=== PATIENT | male | born 1950 | race Caucasian/White ===

== ENCOUNTER 2018-06-10 07:09 | Outpatient (CLI) | payer BC, MEDICARE ==
--- NOTE | 2018-06-10 10:51 | CT ---
CT CHEST WITHOUT CONTRAST SCREENING PROTOCOL: HISTORY: Screening. COMPARISON: CT chest from 02/09/2017. FINDINGS: Lung screen specific (lung-RADS): Left upper lobe pulmonary nodule continues to measure 11 to 12 mm in size, unchanged. There is perip heral spiculation. The craniocaudal length of this nodule is approximately 15 mm, relatively unchang ed from 2016. The 6 to 7 mm nodule in the left upper lobe, axial image 96, is also unchanged. Moderate background emphysema. There is some round atelectasis in the right middle lobe. Chronic bronchial wall thickening. Potentially significant incidentals (lung-RADS category S): None. Pulmonary incidentals: Chronic respiratory bronchiolitis. No pleural effusion. No pericardial effu sheldon. Mild atherosclerotic plaque at the aorta. No displaced rib fracture. No suspicious osteolytic or osteoblastic lesions. IMPRESSION: 1. Lung-RADS category 2-Benign appearance and behavior. Continued screening in one year is recommen ded. 2. Lung-RADS category S-Negative. No new or unknown potentially significant incidental findings req uiring urgent additional evaluation. POS: [facility]
--- NOTE | 2018-06-10 11:20 | ULT ---
LIMITED ULTRASOUND OF THE ABDOMINAL AORTA. HISTORY: Abdominal aortic aneurysm. Abdominal bruit. TECHNIQUE: Multiplanar, henry scale, and color Doppler images were obtained in a limited ultrasound of the abdomi nal aorta. Spectral analysis of the Doppler waveforms of the aorta and common iliac arteries was per formed. FINDINGS: The aorta is normal in caliber without evidence of enlargement. The aorta measures 2.6 cm in greates t dimension proximally. There is no evidence of enlargement of the common iliac arteries. Normal velocities are seen within the aorta and common iliac arteries. IMPRESSION: No evidence of abdominal aortic aneurysm. POS: C
== END 2018-06-10 07:10 | disposition home or self-care (01) ==
LOC: SCSULT 07:09 → CT 07:10
PROVIDERS: ATTEND Family Medicine
DX: Z13.6 Encounter for screening for cardiovascular disorders (principal); Z12.2 Encounter for screening for malignant neoplasm of respiratory organs; Z87.891 Personal history of nicotine dependence
CPT/HCPCS: 76775; G0297

== ENCOUNTER 2019-02-17 15:07 | Outpatient (CLI) | payer BC, MEDICARE ==
--- NOTE | 2019-02-17 15:32 | RAD ---
XR Ankle Rt 3 View STANDARD HISTORY: Injury, right ankle pain FINDINGS: The ankle mortise is maintained. There is a minimally displaced oblique fracture involving the distal fibula.
--- NOTE | 2019-02-17 15:35 | RAD ---
XR Foot Rt 3 View STANDARD HISTORY: Injury, right foot pain FINDINGS: No fracture or dislocation is identified in the right foot. Incidental note is made of an oblique fra cture in the distal fibula..
== END 2019-02-17 15:08 | disposition home or self-care (01) ==
LOC: SCSRAD 15:07
PROVIDERS: ATTEND Family Medicine
DX: S99.921A Unspecified injury of right foot, initial encounter (principal); S99.911A Unspecified injury of right ankle, initial encounter

== ENCOUNTER 2019-02-17 16:32 | Emergency (ER) | payer BC, MEDICARE ==
--- NOTE | 2019-02-17 17:12 | RAD ---
RIGHT LEG 2 VIEWS: HISTORY: Injury, right ankle pain FINDINGS: The right tibia appears intact. There is a minimally displaced oblique fracture of the distal fibula.
== END 2019-02-17 17:42 | disposition home or self-care (01) ==
LOC: SCSER 16:32
DX: S82.431A Displaced oblique fracture of shaft of right fibula, initial encounter for closed fracture (principal); S82.301A Unspecified fracture of lower end of right tibia, initial encounter for closed fracture; I69.954 Hemiplegia and hemiparesis following unspecified cerebrovascular disease affecting left non-dominant side; J43.9 Emphysema, unspecified; F03.90 Unspecified dementia, unspecified severity, without behavioral disturbance, psychotic disturbance, mood disturbance, and anxiety; Z87.891 Personal history of nicotine dependence; W01.0XXA Fall on same level from slipping, tripping and stumbling without subsequent striking against object, initial encounter

== ENCOUNTER 2019-06-28 13:17 | Outpatient (CLI) | payer BC, MEDICARE ==
--- NOTE | 2019-06-28 14:53 | CT ---
CT PULMONARY LUNG SCAN: 06/28/19 IDICATION: History of tobacco use; former smoker for 40 years quit five years ago. COMPARISON: CT pulmonary lung scan dated 06/10/18, CT of the thorax dated 02/10/16 and 01/22/16. FINDINGS: The spiculated 1.3 cm pulmonary nodule is stable. The small 6 mm pulmonary nodule within the left upp er lobe on imaging 100 of series 2 is stable. There is moderate to prominent emphysema. There is pers istent areas of subsegmental volume loss in the right lower lobe and right middle lobe. No new pulmon renate nodule is demonstrated. Coronary artery thoracic aortic calcifications. There is a small hiatal h ernia. The visualized upper abdomen reveals no definite acute abnormality. No definite acute osseous abnormality is evident. IMPRESSION: 1. Lung RADS category 2 - benign. Continued screening in one year is recommended. 2. Lung RADS category S - coronary and thoracic aortic calcifications. Small hiatal hernia. Mode rate to prominent emphysema. POS: [facility]
== END 2019-06-28 13:18 | disposition home or self-care (01) ==
LOC: CT 13:17
PROVIDERS: ATTEND Family Medicine
DX: Z12.2 Encounter for screening for malignant neoplasm of respiratory organs (principal); Z87.891 Personal history of nicotine dependence; K44.9 Diaphragmatic hernia without obstruction or gangrene; J43.9 Emphysema, unspecified
CPT/HCPCS: G0297

== ENCOUNTER 2020-07-29 14:11 | Outpatient (CLI) | payer BC | END 2020-07-29 14:12 | disposition home or self-care (01) | LOC: BICCT 14:11 | PROVIDERS: ATTEND Family Medicine | DX: Z12.2 Encounter for screening for malignant neoplasm of respiratory organs (principal); Z87.891 Personal history of nicotine dependence; I25.10 Atherosclerotic heart disease of native coronary artery without angina pectoris; J43.2 Centrilobular emphysema | CPT/HCPCS: 71271 ==

== ENCOUNTER 2022-11-18 08:15 | Outpatient (CLI) | payer BC, MEDICARE | END 2022-11-18 08:16 | disposition home or self-care (01) | LOC: LABBT 08:15 | PROVIDERS: ATTEND Thoracic Surgery (Cardiothoracic Vascular Surgery) | DX: Z01.810 Encounter for preprocedural cardiovascular examination (principal); C34.12 Malignant neoplasm of upper lobe, left bronchus or lung | CPT/HCPCS: 93005; 93010 ==

== ENCOUNTER 2022-11-18 08:30 | Inpatient (IN) | payer BC, MEDICARE ==
[2022-11-18 09:30] LABS: Hematocrit 47.4 % (38.8-50.0); Mean Corpuscular HGB CONC 31.6 g/dL (32.0-36.0); Mean Corpuscular Volume 91.7 fl (81.2-95.1); Mean Platelet Volume 10.2 fl (7.4-10.4); Platelet Count 366 10x3/uL (150-450); RBC Distribution Width 14.8 % (11.5-14.5); Red Blood Cell (RBC) Count 5.17 10x6/uL (4.32-5.72); White Blood Cell (WBC) Count 6.7 10x3/uL (3.5-10.5)
[2022-11-18 10:01] LABS: Anion Gap 18 mmol/L (10-20); BUN (Urea Nitrogen) 15 mg/dL (8.4-25.7); Calc. Creatinine Clearance 0 mL/min (70-130); Calcium 9.1 mg/dL (7.8-10.44); Carbon Dioxide 21 mmol/L (23-31); Chloride 107 mmol/L (98-107); Estimated GFR 93; Glucose 107 mg/dL (80-115); Sodium 142 mmol/L (136-145)
[2022-11-19] MEDS ORDERED: Bupivacaine HCl 0.5%/Epinephrine 1:200,000/PF 30 ml Vial ONE (06:22)
[2022-11-19] MEDS ORDERED: SUGAMMADEX SODIUM 200 MG/2 ML VIAL ONE (07:01)
[2022-11-19] MEDS ORDERED: HYDROmorphone 0.5 MG/0.5 ML SYRINGE ONE (07:01)
[2022-11-19] MEDS ORDERED: Midazolam HCl 2 mg/2 ml Vial ONE (07:01)
[2022-11-19] MEDS ORDERED: Fentanyl 250 MCG/5 ML VIAL ONE (07:01)
[2022-11-19] MEDS ORDERED: Rocuronium Bromide 50 MG/5 ML VIAL ONE (07:01)
[2022-11-19] MEDS ORDERED: Lidocaine 1.5% w/Epi 1:200K 30 ML VIAL (Epid Use) ONE (08:14)
[2022-11-19] MEDS ORDERED: Ondansetron PF 4 MG/2 ML Vial ONE (08:14)
[2022-11-19] MEDS ORDERED: Dexamethasone 20 MG/5 ML VIAL ONE (08:14)
[2022-11-19] MEDS ORDERED: PROPOFOL 200 MG/20 ML VIAL ONE (08:14)
[2022-11-19] MEDS ORDERED: Lidocaine 1% PF 5 ML VIAL ONE ×2 (08:14→08:56)
[2022-11-19] MEDS ORDERED: Rocuronium Bromide 10 MG/ML (10ML VIAL) ONE (08:14)
[2022-11-19] MEDS ORDERED: Bupivacaine 0.25% 10 ML VIAL EPIDURAL PRN (08:45)
[2022-11-19] MEDS ORDERED: Promethazine HCl 25 MG/ML VIAL IM PRN (08:45)
[2022-11-19] MEDS ORDERED: Zolpidem Tartrate 5 MG TAB PO PRN (08:45)
[2022-11-19] MEDS ORDERED: Promethazine HCl 25 MG SUPP PR PRN (08:45)
[2022-11-19] MEDS ORDERED: Naloxone HCl 0.4 mg/ml Vial IV PRN (08:45)
[2022-11-19] MEDS ORDERED: traMADol HCl 50 MG TAB PO PRN ×2 (08:45)
[2022-11-19] MEDS ORDERED: HYDROcodone/Acetaminophen 5/325 mg Tablet PO PRN ×2 (08:45)
[2022-11-19] MEDS ORDERED: Ondansetron PF 4 MG/2 ML Vial IVP PRN ×2 (08:45→11:13)
[2022-11-19] MEDS ORDERED: diphenhydrAMINE 25 MG CAP PO PRN (08:45)
[2022-11-19] MEDS ORDERED: Moisturizing Cream (Eucerin) 113 GM JAR TOP PRN (08:45)
[2022-11-19] MEDS ORDERED: diphenhydrAMINE 50 MG/ML VIAL IM PRN (08:45)
[2022-11-19] MEDS ORDERED: Naloxone HCl 0.4 mg/ml Vial IVP PRN (08:45)
[2022-11-19] MEDS ORDERED: niCARdipine 25 MG in Sodium Chloride 0.9% 250 ML 250 ML IVPB PRN (11:13)
[2022-11-19] MEDS ORDERED: Phenylephrine 40 MG in Sodium Chloride 0.9% 250 ML 250 ML IVPB PRN (11:13)
[2022-11-19] MEDS: Ketorolac Tromethamine 30 MG/ML VIAL IVP SCH ×3 (13:41→23:39)
[2022-11-19] MEDS: Lactated Ringer's 1,000 ML IV SCH ×2 (13:42→23:40)
[2022-11-19] MEDS: CEFAZOLIN 2 GM in Sodium Chloride 0.9% 100 ML IVPB SCH ×2 (16:17→23:39)
[2022-11-19] MEDS: levETIRAcetam 500 MG TAB PO SCH (21:04)
[2022-11-19] MEDS: Citalopram 20 MG TAB PO SCH (21:04)
[2022-11-19] MEDS: Atorvastatin Calcium 40 MG TAB PO SCH (21:04)
[2022-11-20] MEDS: Fentanyl/Bupivacaine 100 ML EPIDURAL SCH ×2 (03:45→20:32)
[2022-11-20] MEDS: Ipratropium/Albuterol 3 ML NEB NEB PRN ×2 (04:12→11:40)
[2022-11-20] MEDS: Ketorolac Tromethamine 30 MG/ML VIAL IVP SCH ×4 (05:08→23:48)
[2022-11-20 05:27] LABS: %Basophils 0.1 % (0.0-1.0); %Lymphocytes 18.7 % (21.0-51.0); %Monocytes 10.9 % (0.0-10.0); %Neutrophils 69.8 % (42.0-75.0); Hematocrit 40.3 % (42.0-52.0); Hemoglobin 13.1 g/dL (14.0-18.0); Mean Corpuscular HGB CONC 32.5 g/dL (32.0-36.0); Mean Corpuscular Hemoglobin 29.5 pg (27.0-31.0); Mean Corpuscular Volume 90.8 fl (78.0-98.0); Mean Platelet Volume 10.3 fL (7.4-10.4); Platelet Count 310 10x3/uL (130-400); RBC Distribution Width 14.9 % (11.5-14.5); Red Blood Cell (RBC) Count 4.44 mill/uL (4.70-6.10); White Blood Cell (WBC) Count 18.6 10x3/uL (4.8-10.8)
[2022-11-20 05:52] LABS: Anion Gap 13 mmol/L (10-20); BUN (Urea Nitrogen) 19 mg/dL (8.4-25.7); Calc. Creatinine Clearance 72 mL/min (70-130); Calcium 8.3 mg/dL (7.8-10.44); Carbon Dioxide 19 mmol/L (23-31); Chloride 109 mmol/L (98-107); Estimated GFR 93; Glucose 133 mg/dL (80-115); Potassium 4.2 mmol/L (3.5-5.1); Sodium 137 mmol/L (136-145)
[2022-11-20] MEDS: Aspirin 81 mg Enteric Coated Tablet PO SCH (07:37)
[2022-11-20] MEDS: Polyethylene Glycol 3350 17 GM Packet PO SCH (07:37)
[2022-11-20] MEDS: CEFAZOLIN 2 GM in Sodium Chloride 0.9% 100 ML IVPB SCH (07:37)
[2022-11-20] MEDS: levETIRAcetam 500 MG TAB PO SCH ×2 (07:37→21:36)
[2022-11-20] MEDS: Lactated Ringer's 1,000 ML IV SCH ×2 (07:38→23:49)
[2022-11-20] MEDS: Citalopram 20 MG TAB PO SCH (21:36)
[2022-11-20] MEDS: Atorvastatin Calcium 40 MG TAB PO SCH (21:36)
[2022-11-21] MEDS: Ipratropium/Albuterol 3 ML NEB NEB PRN (00:54)
[2022-11-21 04:27] LABS: Anion Gap 13 mmol/L (10-20); BUN (Urea Nitrogen) 25 mg/dL (8.4-25.7); Calc. Creatinine Clearance 83 mL/min (70-130); Calcium 8.3 mg/dL (7.8-10.44); Carbon Dioxide 22 mmol/L (23-31); Chloride 106 mmol/L (98-107); Estimated GFR 93; Glucose 108 mg/dL (80-115); Potassium 3.8 mmol/L (3.5-5.1); Sodium 137 mmol/L (136-145)
[2022-11-21] MEDS: Ketorolac Tromethamine 30 MG/ML VIAL IVP SCH (05:24)
[2022-11-21] MEDS: diphenhydrAMINE 50 MG/ML VIAL IVP PRN (05:40)
[2022-11-21] MEDS: levETIRAcetam 500 MG TAB PO SCH ×2 (10:04→21:02)
[2022-11-21] MEDS: Polyethylene Glycol 3350 17 GM Packet PO SCH (10:04)
[2022-11-21] MEDS: Aspirin 81 mg Enteric Coated Tablet PO SCH (10:04)
[2022-11-21] MEDS: Fentanyl/Bupivacaine 100 ML EPIDURAL SCH (14:06)
[2022-11-21] MEDS: Lactated Ringer's 1,000 ML IV SCH (19:47)
[2022-11-21] MEDS: Citalopram 20 MG TAB PO SCH (21:02)
[2022-11-21] MEDS: Atorvastatin Calcium 40 MG TAB PO SCH (21:02)
[2022-11-22] MEDS: Lactated Ringer's 1,000 ML IV SCH ×2 (04:15→18:32)
[2022-11-22] MEDS: diphenhydrAMINE 50 MG/ML VIAL IVP PRN ×2 (05:05→20:57)
[2022-11-22] MEDS: Fentanyl/Bupivacaine 100 ML EPIDURAL SCH ×2 (06:09→23:17)
[2022-11-22] MEDS ORDERED: Vasopressin 20 UNITS/ML VIAL ONE (07:18)
[2022-11-22] MEDS ORDERED: Phenylephrine 10 MG/ML VIAL ONE (07:18)
[2022-11-22] MEDS ORDERED: Norepinephrine 4 MG/4 ML VIAL ONE (07:18)
[2022-11-22] MEDS ORDERED: Albumin 5% 0 ML ONE (07:18)
[2022-11-22] MEDS ORDERED: Albumin 5% 250 ML ONE (07:19)
[2022-11-22] MEDS ORDERED: SUGAMMADEX SODIUM 200 MG/2 ML VIAL ONE (07:46)
[2022-11-22] MEDS ORDERED: fentaNYL PF 100 MCG/2 ML SYRINGE ONE (08:14)
[2022-11-22] MEDS ORDERED: HYDROmorphone 0.5 MG/0.5 ML SYRINGE ONE (08:14)
[2022-11-22] MEDS ORDERED: Lidocaine 1% PF 5 ML VIAL ONE (08:31)
[2022-11-22] MEDS ORDERED: Ondansetron PF 4 MG/2 ML Vial ONE (08:31)
[2022-11-22] MEDS ORDERED: PROPOFOL 200 MG/20 ML VIAL ONE (08:31)
[2022-11-22] MEDS ORDERED: Rocuronium Bromide 10 MG/ML (10ML VIAL) ONE (08:31)
[2022-11-22] MEDS ORDERED: cefTRIAXone\\ROCEPHIN 2 GM in Sodium Chloride 0.9% 100 ML IVPB SCH (10:34)
[2022-11-22] MEDS ORDERED: Rocuronium Bromide 50 MG/5 ML VIAL ONE (10:37)
[2022-11-22] MEDS: cefTRIAXone\\ROCEPHIN 2 GM in Sodium Chloride 0.9% 100 ML IVPB SCH (11:29)
[2022-11-22] MEDS: Polyethylene Glycol 3350 17 GM Packet PO SCH (13:01)
[2022-11-22] MEDS ORDERED: levETIRAcetam 500 MG/5 ML VIAL SLOW IVP SCH (13:30)
[2022-11-22] MEDS: Aspirin 81 mg Enteric Coated Tablet PO SCH (14:10)
[2022-11-22] MEDS: levETIRAcetam 500 MG TAB PO SCH (16:25)
[2022-11-22] MEDS: Atorvastatin Calcium 40 MG TAB PO SCH (20:47)
[2022-11-22] MEDS: Citalopram 20 MG TAB PO SCH (20:47)
[2022-11-22] MEDS: levETIRAcetam 500 MG/5 ML VIAL SLOW IVP SCH (20:57)
[2022-11-23 05:03] LABS: Anion Gap 16 mmol/L (10-20); BUN (Urea Nitrogen) 13 mg/dL (8.4-25.7); Calc. Creatinine Clearance 98 mL/min (70-130); Calcium 7.9 mg/dL (7.8-10.44); Carbon Dioxide 21 mmol/L (23-31); Chloride 107 mmol/L (98-107); Estimated GFR 99; Glucose 93 mg/dL (80-115); Potassium 3.8 mmol/L (3.5-5.1); Sodium 140 mmol/L (136-145)
[2022-11-23] MEDS: Lactated Ringer's 1,000 ML IV SCH ×2 (05:36→22:00)
[2022-11-23] MEDS: levETIRAcetam 500 MG/5 ML VIAL SLOW IVP SCH ×2 (09:30→21:01)
[2022-11-23] MEDS: cefTRIAXone\\ROCEPHIN 2 GM in Sodium Chloride 0.9% 100 ML IVPB SCH (10:33)
[2022-11-23] MEDS: Ipratropium/Albuterol 3 ML NEB NEB SCH ×3 (10:43→18:41)
[2022-11-23] MEDS: Aspirin 81 mg Enteric Coated Tablet PO SCH (13:25)
[2022-11-23] MEDS: Polyethylene Glycol 3350 17 GM Packet PO SCH (13:27)
[2022-11-23] MEDS ORDERED: Meropenem 1 GM in Sodium Chloride 0.9% 100 ML IVPB SCH ×3 (14:17→22:00)
[2022-11-23 14:35] LABS: #Eosinphils 0.1 thou/uL (0.0-0.7); #Monocytes 1.7 thou/uL (0.11-0.59); %Basophils 0.3 % (0.0-1.0); %Eosinophils 0.4 % (0.0-10.0); %Lymphocytes 8.9 % (21.0-51.0); %Monocytes 14.1 % (0.0-10.0); %Neutrophils 75.8 % (42.0-75.0); Hematocrit 36.7 % (42.0-52.0); Hemoglobin 11.7 g/dL (14.0-18.0); Mean Corpuscular HGB CONC 31.9 g/dL (32.0-36.0); Mean Corpuscular Hemoglobin 29.3 pg (27.0-31.0); Mean Platelet Volume 9.6 fL (7.4-10.4); Platelet Count 362 10x3/uL (130-400); RBC Distribution Width 14.9 % (11.5-14.5); Red Blood Cell (RBC) Count 3.99 mill/uL (4.70-6.10); White Blood Cell (WBC) Count 11.9 10x3/uL (4.8-10.8)
[2022-11-23] MEDS: Fentanyl/Bupivacaine 100 ML EPIDURAL SCH (17:14)
[2022-11-23] MEDS ORDERED: Furosemide 20 MG/2 ML VIAL SLOW IVP SCH (17:45)
[2022-11-23] MEDS: Citalopram 20 MG TAB PO SCH (21:01)
[2022-11-23] MEDS: Meropenem 1 GM in Sodium Chloride 0.9% 100 ML IVPB SCH (21:01)
[2022-11-23] MEDS: Atorvastatin Calcium 40 MG TAB PO SCH (21:01)
[2022-11-23] MEDS: diphenhydrAMINE 50 MG/ML VIAL IVP PRN (21:40)
[2022-11-24 04:53] LABS: Anion Gap 3 mmol/L (10-20); BUN (Urea Nitrogen) 14 mg/dL (8.4-25.7); Calc. Creatinine Clearance 103 mL/min (70-130); Calcium 7.7 mg/dL (7.8-10.44); Carbon Dioxide 29 mmol/L (23-31); Chloride 109 mmol/L (98-107); Estimated GFR 100; Glucose 127 mg/dL (80-115); Potassium 3.1 mmol/L (3.5-5.1); Sodium 138 mmol/L (136-145)
[2022-11-24] MEDS: Meropenem 1 GM in Sodium Chloride 0.9% 100 ML IVPB SCH ×3 (05:46→21:41)
[2022-11-24] MEDS: Ipratropium/Albuterol 3 ML NEB NEB SCH ×4 (07:35→19:05)
[2022-11-24] MEDS: levETIRAcetam 500 MG/5 ML VIAL SLOW IVP SCH ×2 (08:38→21:41)
[2022-11-24] MEDS: Polyethylene Glycol 3350 17 GM Packet PO SCH (08:38)
[2022-11-24] MEDS: Aspirin 81 mg Enteric Coated Tablet PO SCH (08:38)
[2022-11-24] MEDS: Fentanyl/Bupivacaine 100 ML EPIDURAL SCH (10:48)
[2022-11-24] MEDS: Lactated Ringer's 1,000 ML IV SCH (13:02)
[2022-11-24] MEDS: Heparin 5,000 UNITS/ML VIAL SC SCH (21:41)
[2022-11-24] MEDS ORDERED: chlorproMAZINE HCl 25 MG in Sodium Chloride 0.9% 50 ML IVPB SCH (22:00)
[2022-11-24] MEDS ORDERED: chlorproMAZINE HCl 50 MG/2 ML AMP SLOW IVP SCH (22:00)
[2022-11-24] MEDS: Citalopram 20 MG TAB PO SCH (22:33)
[2022-11-24] MEDS: Atorvastatin Calcium 40 MG TAB PO SCH (22:33)
[2022-11-24] MEDS: diphenhydrAMINE 50 MG/ML VIAL IVP PRN (23:56)
[2022-11-25] MEDS ORDERED: Sodium Bicarbonate Tab 325 MG TAB PER TUBE PRN (03:00)
[2022-11-25] MEDS ORDERED: Pancrelipase DR 12,000 1 CAP FS PRN (03:00)
[2022-11-25] MEDS: Lactated Ringer's 1,000 ML IV SCH ×2 (03:07→15:30)
[2022-11-25] MEDS: Fentanyl/Bupivacaine 100 ML EPIDURAL SCH ×2 (03:34→20:15)
[2022-11-25] MEDS: Meropenem 1 GM in Sodium Chloride 0.9% 100 ML IVPB SCH ×3 (05:34→21:05)
[2022-11-25 07:31] LABS: Phosphorus 1.8 mg/dL (2.3-4.7)
[2022-11-25] MEDS: Ipratropium/Albuterol 3 ML NEB NEB SCH ×4 (07:35→18:34)
[2022-11-25 07:42] LABS: Anion Gap 13 mmol/L (10-20); BUN (Urea Nitrogen) 13 mg/dL (8.4-25.7); Calc. Creatinine Clearance 119 mL/min (70-130); Calcium 8.2 mg/dL (7.8-10.44); Carbon Dioxide 26 mmol/L (23-31); Chloride 105 mmol/L (98-107); Estimated GFR 103; Glucose 81 mg/dL (80-115); Magnesium 1.7 mg/dL (1.6-2.6); Sodium 141 mmol/L (136-145)
[2022-11-25] MEDS ORDERED: Electrolyte Replacement Protocol 1 EACH FS ONE (08:48)
[2022-11-25] MEDS ORDERED: Electrolyte Replacement Protocol FS PRN (09:30)
[2022-11-25] MEDS ORDERED: Magnesium 2 GM/50 ML(in water) 2 GM in Premix Bag 1 BAG IVPB SCH (09:30)
[2022-11-25] MEDS: PHOS-NAK 1 PKT PACK PO SCH ×2 (09:59→13:54)
[2022-11-25] MEDS: levETIRAcetam 500 MG/5 ML VIAL SLOW IVP SCH ×2 (09:59→20:11)
[2022-11-25] MEDS: Polyethylene Glycol 3350 17 GM Packet PO SCH (09:59)
[2022-11-25] MEDS: Aspirin 81 mg Enteric Coated Tablet PO SCH (09:59)
[2022-11-25] MEDS: Heparin 5,000 UNITS/ML VIAL SC SCH ×3 (10:01→20:11)
[2022-11-25] MEDS: Potassium Chloride 20 MEQ in Premix Bag 1 BAG IVPB SCH (10:06)
[2022-11-25 13:36] LABS: #Basophils 0.1 thou/uL (0.0-0.2); #Eosinphils 0.5 thou/uL (0.0-0.7); #Monocytes 1.3 thou/uL (0.11-0.59); #Neutrophils 5.6 thou/uL (1.40-6.50); %Basophils 0.7 % (0.0-1.0); %Eosinophils 4.7 % (0.0-10.0); %Monocytes 13.4 % (0.0-10.0); %Neutrophils 58.1 % (42.0-75.0); Hematocrit 37.4 % (42.0-52.0); Hemoglobin 11.8 g/dL (14.0-18.0); Mean Corpuscular HGB CONC 31.6 g/dL (32.0-36.0); Mean Corpuscular Hemoglobin 28.9 pg (27.0-31.0); Mean Corpuscular Volume 91.4 fl (78.0-98.0); Mean Platelet Volume 10.1 fL (7.4-10.4); Platelet Count 375 10x3/uL (130-400); RBC Distribution Width 15.2 % (11.5-14.5); Red Blood Cell (RBC) Count 4.09 mill/uL (4.70-6.10); White Blood Cell (WBC) Count 9.6 10x3/uL (4.8-10.8)
[2022-11-25] MEDS: Citalopram 20 MG TAB PO SCH (20:10)
[2022-11-25] MEDS: Atorvastatin Calcium 40 MG TAB PO SCH (20:10)
[2022-11-25] MEDS: diphenhydrAMINE 50 MG/ML VIAL IVP PRN (20:19)
[2022-11-26 04:56] LABS: Anion Gap 12 mmol/L (10-20); BUN (Urea Nitrogen) 15 mg/dL (8.4-25.7); Calc. Creatinine Clearance 117 mL/min (70-130); Calcium 7.6 mg/dL (7.8-10.44); Carbon Dioxide 26 mmol/L (23-31); Chloride 106 mmol/L (98-107); Estimated GFR 103; Glucose 143 mg/dL (80-115); Potassium 3.3 mmol/L (3.5-5.1); Sodium 141 mmol/L (136-145)
[2022-11-26 05:06] LABS: Phosphorus 2.8 mg/dL (2.3-4.7)
[2022-11-26] MEDS: Meropenem 1 GM in Sodium Chloride 0.9% 100 ML IVPB SCH ×3 (05:10→21:40)
[2022-11-26] MEDS: Lactated Ringer's 1,000 ML IV SCH (05:11)
[2022-11-26] MEDS: Ipratropium/Albuterol 3 ML NEB NEB SCH ×4 (07:06→20:21)
[2022-11-26] MEDS: Aspirin 81 mg Enteric Coated Tablet PO SCH (07:54)
[2022-11-26] MEDS: Polyethylene Glycol 3350 17 GM Packet PO SCH (07:54)
[2022-11-26] MEDS ORDERED: Potassium Bicarbonate/Cit Ac 20 MEQ TAB PO SCH (08:00)
[2022-11-26] MEDS ORDERED: Potassium Chloride 20 MEQ TAB PO SCH (08:00)
[2022-11-26] MEDS ORDERED: Magnesium 2 GM/50 ML(in water) 2 GM in Premix Bag 1 BAG IVPB SCH (08:00)
[2022-11-26] MEDS ORDERED: Potassium Chloride 20 MEQ in Premix Bag 1 BAG IVPB SCH (08:00)
[2022-11-26] MEDS: levETIRAcetam 500 MG/5 ML VIAL SLOW IVP SCH ×2 (09:07→21:11)
[2022-11-26] MEDS ORDERED: Bisacodyl 10 MG SUPP PR PRN (11:50)
[2022-11-26] MEDS: Heparin 5,000 UNITS/ML VIAL SC SCH ×2 (14:53→21:13)
[2022-11-26] MEDS: Famotidine/PF 20 mg/2ml Vial SLOW IVP SCH (21:11)
[2022-11-26] MEDS: Atorvastatin Calcium 40 MG TAB PO SCH (21:11)
[2022-11-26] MEDS: Citalopram 20 MG TAB PO SCH (21:11)
[2022-11-27 04:28] LABS: #Basophils 0.1 thou/uL (0.0-0.2); #Eosinphils 0.3 thou/uL (0.0-0.7); #Monocytes 1.4 thou/uL (0.11-0.59); #Neutrophils 7.3 thou/uL (1.40-6.50); %Eosinophils 2.7 % (0.0-10.0); %Lymphocytes 18.6 % (21.0-51.0); %Neutrophils 64.1 % (42.0-75.0); Hematocrit 35.4 % (42.0-52.0); Hemoglobin 11.2 g/dL (14.0-18.0); Mean Corpuscular HGB CONC 31.6 g/dL (32.0-36.0); Mean Corpuscular Hemoglobin 29.2 pg (27.0-31.0); Mean Corpuscular Volume 92.2 fl (78.0-98.0); Mean Platelet Volume 9.7 fL (7.4-10.4); Platelet Count 483 10x3/uL (130-400); RBC Distribution Width 15.2 % (11.5-14.5); Red Blood Cell (RBC) Count 3.84 mill/uL (4.70-6.10); White Blood Cell (WBC) Count 11.5 10x3/uL (4.8-10.8)
[2022-11-27 04:51] LABS: Anion Gap 15 mmol/L (10-20); BUN (Urea Nitrogen) 13 mg/dL (8.4-25.7); Calc. Creatinine Clearance 119 mL/min (70-130); Calcium 8.2 mg/dL (7.8-10.44); Carbon Dioxide 24 mmol/L (23-31); Chloride 105 mmol/L (98-107); Estimated GFR 103; Glucose 132 mg/dL (80-115); Sodium 140 mmol/L (136-145)
[2022-11-27 04:54] LABS: Phosphorus 2.6 mg/dL (2.3-4.7)
[2022-11-27] MEDS: Meropenem 1 GM in Sodium Chloride 0.9% 100 ML IVPB SCH ×3 (06:27→22:08)
[2022-11-27] MEDS: Ipratropium/Albuterol 3 ML NEB NEB SCH ×4 (07:17→19:04)
[2022-11-27] MEDS: Aspirin Chewable 81 MG TAB PO SCH (07:35)
[2022-11-27] MEDS: Polyethylene Glycol 3350 17 GM Packet PO SCH (07:35)
[2022-11-27] MEDS ORDERED: Magnesium 2 GM/50 ML(in water) 2 GM in Premix Bag 1 BAG IVPB SCH (08:00)
[2022-11-27] MEDS: Famotidine/PF 20 mg/2ml Vial SLOW IVP SCH ×2 (08:52→20:34)
[2022-11-27] MEDS: levETIRAcetam 500 MG/5 ML VIAL SLOW IVP SCH ×2 (08:53→20:34)
[2022-11-27] MEDS: Heparin 5,000 UNITS/ML VIAL SC SCH ×3 (08:58→20:40)
[2022-11-27] MEDS: Citalopram 20 MG TAB PO SCH (20:33)
[2022-11-27] MEDS: Atorvastatin Calcium 40 MG TAB PO SCH (20:34)
[2022-11-28 04:12] LABS: #Basophils 0.1 thou/uL (0.0-0.2); #Eosinphils 0.2 thou/uL (0.0-0.7); #Monocytes 1.3 thou/uL (0.11-0.59); #Neutrophils 8.3 thou/uL (1.40-6.50); %Basophils 0.8 % (0.0-1.0); %Eosinophils 2.1 % (0.0-10.0); %Lymphocytes 13.6 % (21.0-51.0); %Monocytes 10.9 % (0.0-10.0); %Neutrophils 71.2 % (42.0-75.0); Hematocrit 34.6 % (42.0-52.0); Hemoglobin 11.2 g/dL (14.0-18.0); Mean Corpuscular HGB CONC 32.4 g/dL (32.0-36.0); Mean Corpuscular Hemoglobin 29.2 pg (27.0-31.0); Mean Corpuscular Volume 90.3 fl (78.0-98.0); Mean Platelet Volume 9.6 fL (7.4-10.4); Platelet Count 503 10x3/uL (130-400); RBC Distribution Width 15.1 % (11.5-14.5); Red Blood Cell (RBC) Count 3.83 mill/uL (4.70-6.10); White Blood Cell (WBC) Count 11.6 10x3/uL (4.8-10.8)
[2022-11-28 05:32] LABS: Anion Gap 8 mmol/L (10-20); BUN (Urea Nitrogen) 9 mg/dL (8.4-25.7); Calc. Creatinine Clearance 114 mL/min (70-130); Calcium 8.4 mg/dL (7.8-10.44); Carbon Dioxide 30 mmol/L (23-31); Chloride 105 mmol/L (98-107); Estimated GFR 101; Glucose 124 mg/dL (80-115); Magnesium 2.2 mg/dL (1.6-2.6); Potassium 4.4 mmol/L (3.5-5.1); Sodium 139 mmol/L (136-145)
[2022-11-28] MEDS: Meropenem 1 GM in Sodium Chloride 0.9% 100 ML IVPB SCH ×3 (06:50→23:06)
[2022-11-28] MEDS: Ipratropium/Albuterol 3 ML NEB NEB SCH ×4 (07:45→18:10)
[2022-11-28] MEDS: PHOS-NAK 1 PKT PACK PO SCH ×2 (09:24→15:55)
[2022-11-28] MEDS: Polyethylene Glycol 3350 17 GM Packet PO SCH (09:24)
[2022-11-28] MEDS: Famotidine/PF 20 mg/2ml Vial SLOW IVP SCH ×2 (09:24→21:37)
[2022-11-28] MEDS: Aspirin Chewable 81 MG TAB PO SCH (09:24)
[2022-11-28] MEDS: levETIRAcetam 500 MG/5 ML VIAL SLOW IVP SCH ×2 (09:25→21:37)
[2022-11-28] MEDS: Heparin 5,000 UNITS/ML VIAL SC SCH ×3 (09:25→21:37)
[2022-11-28] MEDS: Citalopram 20 MG TAB PO SCH (21:37)
[2022-11-28] MEDS: Atorvastatin Calcium 40 MG TAB PO SCH (21:37)
[2022-11-29 04:18] LABS: #Basophils 0.1 thou/uL (0.0-0.2); #Eosinphils 0.3 thou/uL (0.0-0.7); #Monocytes 1.6 thou/uL (0.11-0.59); #Neutrophils 10.1 thou/uL (1.40-6.50); %Basophils 0.6 % (0.0-1.0); %Eosinophils 2.3 % (0.0-10.0); %Monocytes 11.4 % (0.0-10.0); %Neutrophils 70.9 % (42.0-75.0); Hematocrit 39.2 % (42.0-52.0); Hemoglobin 12.5 g/dL (14.0-18.0); Mean Corpuscular HGB CONC 31.9 g/dL (32.0-36.0); Mean Platelet Volume 9.8 fL (7.4-10.4); Platelet Count 572 10x3/uL (130-400); RBC Distribution Width 14.8 % (11.5-14.5); Red Blood Cell (RBC) Count 4.31 mill/uL (4.70-6.10); White Blood Cell (WBC) Count 14.2 10x3/uL (4.8-10.8)
[2022-11-29 04:41] LABS: Magnesium 2.1 mg/dL (1.6-2.6); Phosphorus 2.8 mg/dL (2.3-4.7)
[2022-11-29] MEDS: Meropenem 1 GM in Sodium Chloride 0.9% 100 ML IVPB SCH ×3 (06:29→22:59)
[2022-11-29] MEDS: Ipratropium/Albuterol 3 ML NEB NEB SCH ×4 (07:33→18:53)
[2022-11-29] MEDS: levETIRAcetam 500 MG/5 ML VIAL SLOW IVP SCH ×2 (08:59→20:00)
[2022-11-29] MEDS: Heparin 5,000 UNITS/ML VIAL SC SCH ×3 (08:59→20:00)
[2022-11-29] MEDS: Aspirin Chewable 81 MG TAB PO SCH (08:59)
[2022-11-29] MEDS: Polyethylene Glycol 3350 17 GM Packet PO SCH (08:59)
[2022-11-29] MEDS: Famotidine/PF 20 mg/2ml Vial SLOW IVP SCH ×2 (09:00→20:00)
[2022-11-29] MEDS: Citalopram 20 MG TAB PO SCH (20:00)
[2022-11-29] MEDS: Atorvastatin Calcium 40 MG TAB PO SCH (20:00)
[2022-11-30] MEDS: Meropenem 1 GM in Sodium Chloride 0.9% 100 ML IVPB SCH ×3 (05:27→23:16)
[2022-11-30] MEDS: Ipratropium/Albuterol 3 ML NEB NEB SCH ×4 (08:03→19:03)
[2022-11-30] MEDS: Aspirin Chewable 81 MG TAB PO SCH (08:42)
[2022-11-30] MEDS: Heparin 5,000 UNITS/ML VIAL SC SCH ×3 (08:42→20:32)
[2022-11-30] MEDS: Famotidine/PF 20 mg/2ml Vial SLOW IVP SCH ×2 (08:42→20:32)
[2022-11-30] MEDS: levETIRAcetam 500 MG/5 ML VIAL SLOW IVP SCH ×2 (08:43→20:32)
[2022-11-30] MEDS: Polyethylene Glycol 3350 17 GM Packet PO SCH (08:43)
[2022-11-30] MEDS: Citalopram 20 MG TAB PO SCH (20:31)
[2022-11-30] MEDS: Atorvastatin Calcium 40 MG TAB PO SCH (20:31)
[2022-12-01] MEDS: Meropenem 1 GM in Sodium Chloride 0.9% 100 ML IVPB SCH ×3 (05:40→21:04)
[2022-12-01] MEDS: Ipratropium/Albuterol 3 ML NEB NEB SCH ×4 (07:05→18:17)
[2022-12-01] MEDS: Famotidine/PF 20 mg/2ml Vial SLOW IVP SCH ×2 (08:45→20:17)
[2022-12-01] MEDS: Polyethylene Glycol 3350 17 GM Packet PO SCH (08:45)
[2022-12-01] MEDS: Aspirin Chewable 81 MG TAB PO SCH (08:45)
[2022-12-01] MEDS: levETIRAcetam 500 MG/5 ML VIAL SLOW IVP SCH ×2 (08:45→20:17)
[2022-12-01] MEDS: Heparin 5,000 UNITS/ML VIAL SC SCH ×3 (08:45→20:17)
[2022-12-01] MEDS: Atorvastatin Calcium 40 MG TAB PO SCH (20:17)
[2022-12-01] MEDS: Citalopram 20 MG TAB PO SCH (20:17)
[2022-12-02] MEDS: Meropenem 1 GM in Sodium Chloride 0.9% 100 ML IVPB SCH ×3 (05:06→23:05)
[2022-12-02] MEDS: Ipratropium/Albuterol 3 ML NEB NEB SCH ×4 (07:51→18:38)
[2022-12-02] MEDS: Famotidine/PF 20 mg/2ml Vial SLOW IVP SCH ×2 (10:42→20:47)
[2022-12-02] MEDS: levETIRAcetam 500 MG/5 ML VIAL SLOW IVP SCH ×2 (10:42→20:47)
[2022-12-02] MEDS ORDERED: Famotidine/PF 20 mg/2ml Vial ONE (14:04)
[2022-12-02] MEDS ORDERED: fentaNYL 50 mcg/mL 1 mL Vial ONE (14:04)
[2022-12-02] MEDS ORDERED: PHENYLEPHRINE-NS 100 MCG/ML 10 ML SYRINGE ONE (14:05)
[2022-12-02] MEDS ORDERED: fentaNYL PF 100 MCG/2 ML SYRINGE ONE (14:35)
[2022-12-02] MEDS ORDERED: Oxymetazoline HCl 0.05% (30 ML BOT) ONE (14:52)
[2022-12-02] MEDS: Polyethylene Glycol 3350 17 GM Packet PO SCH (15:35)
[2022-12-02] MEDS: Aspirin Chewable 81 MG TAB PO SCH (15:35)
[2022-12-02] MEDS ORDERED: Dexamethasone 20 MG/5 ML VIAL ONE (15:37)
[2022-12-02] MEDS ORDERED: Ondansetron PF 4 MG/2 ML Vial ONE (15:37)
[2022-12-02] MEDS ORDERED: PROPOFOL 200 MG/20 ML VIAL ONE (15:37)
[2022-12-02] MEDS ORDERED: Succinylcholine 200 MG/10 ml SYRINGE FS ONE (15:37)
[2022-12-02] MEDS ORDERED: Lidocaine 1% PF 5 ML VIAL ONE (15:37)
[2022-12-02] MEDS ORDERED: Ondansetron HCl/PF 4 MG/2 ML Vial IVP PRN ×2 (16:09→17:47)
[2022-12-02] MEDS ORDERED: Promethazine HCl 25 MG/ML VIAL IM PRN ×2 (16:09→17:47)
[2022-12-02] MEDS: Atorvastatin Calcium 40 MG TAB PO SCH (21:19)
[2022-12-02] MEDS: Citalopram 20 MG TAB PO SCH (21:19)
[2022-12-03] MEDS: Meropenem 1 GM in Sodium Chloride 0.9% 100 ML IVPB SCH ×3 (05:28→21:16)
[2022-12-03] MEDS: Ipratropium/Albuterol 3 ML NEB NEB SCH ×4 (07:42→18:48)
[2022-12-03] MEDS: Famotidine/PF 20 mg/2ml Vial SLOW IVP SCH ×2 (08:50→21:16)
[2022-12-03] MEDS: Heparin 5,000 UNITS/ML VIAL SC SCH ×3 (08:51→21:17)
[2022-12-03] MEDS: Aspirin Chewable 81 MG TAB PO SCH (08:51)
[2022-12-03] MEDS: Polyethylene Glycol 3350 17 GM Packet PO SCH (08:51)
[2022-12-03] MEDS: levETIRAcetam 500 MG/5 ML VIAL SLOW IVP SCH ×2 (08:51→21:16)
[2022-12-03 15:12] VITALS: BP 114/63
[2022-12-03] MEDS: Atorvastatin Calcium 40 MG TAB PO SCH (21:16)
[2022-12-03] MEDS: Citalopram 20 MG TAB PO SCH (21:16)
[2022-12-04] MEDS: Meropenem 1 GM in Sodium Chloride 0.9% 100 ML IVPB SCH (05:31)
[2022-12-04 06:59] LABS: #Basophils 0.1 thou/uL (0.0-0.2); #Eosinphils 0.2 thou/uL (0.0-0.7); #Monocytes 1.3 thou/uL (0.11-0.59); #Neutrophils 6.6 thou/uL (1.40-6.50); %Basophils 1.2 % (0.0-1.0); %Eosinophils 2.1 % (0.0-10.0); %Lymphocytes 23.6 % (21.0-51.0); %Monocytes 11.5 % (0.0-10.0); %Neutrophils 58.2 % (42.0-75.0); Hematocrit 36.5 % (42.0-52.0); Hemoglobin 11.7 g/dL (14.0-18.0); Mean Corpuscular HGB CONC 32.1 g/dL (32.0-36.0); Mean Corpuscular Hemoglobin 28.4 pg (27.0-31.0); Mean Corpuscular Volume 88.6 fl (78.0-98.0); Mean Platelet Volume 9.8 fL (7.4-10.4); Platelet Count 869 10x3/uL (130-400); RBC Distribution Width 14.9 % (11.5-14.5); Red Blood Cell (RBC) Count 4.12 mill/uL (4.70-6.10); White Blood Cell (WBC) Count 11.3 10x3/uL (4.8-10.8)
[2022-12-04] MEDS: Ipratropium/Albuterol 3 ML NEB NEB SCH ×3 (07:23→14:39)
[2022-12-04] MEDS: Famotidine/PF 20 mg/2ml Vial SLOW IVP SCH (09:25)
[2022-12-04] MEDS: Aspirin Chewable 81 MG TAB PO SCH (09:26)
[2022-12-04] MEDS: levETIRAcetam 500 MG/5 ML VIAL SLOW IVP SCH (09:26)
[2022-12-04] MEDS: Polyethylene Glycol 3350 17 GM Packet PO SCH (09:26)
[2022-12-04] MEDS: Heparin 5,000 UNITS/ML VIAL SC SCH ×2 (09:26→17:46)
[2022-12-04 14:39] VITALS: BMI 22.4
[2022-12-04 16:12] VITALS: TEMP 97.3
== END 2022-12-04 18:07 | DRG 164 ==
LOC: SURG A 11-19 06:18 → CCU 11-19 13:30 → IMCU/EMU 11-27 21:49
PROVIDERS: ADMIT Thoracic Surgery (Cardiothoracic Vascular Surgery); ATTEND Thoracic Surgery (Cardiothoracic Vascular Surgery)
PROC: 07BB0ZX Excision of Mesenteric Lymphatic, Open Approach, Diagnostic (ICD-10-PCS; 2022-11-19)
PROC: 0BBG0ZZ Excision of Left Upper Lung Lobe, Open Approach (ICD-10-PCS; 2022-11-19)
PROC: 0BTG0ZZ Resection of Left Upper Lung Lobe, Open Approach (ICD-10-PCS; principal; 2022-11-22)
PROC: 0W9B30Z Drainage of Left Pleural Cavity with Drainage Device, Percutaneous Approach (ICD-10-PCS; 2022-11-22)
PROC: 0DH67UZ Insertion of Feeding Device into Stomach, Via Natural or Artificial Opening (ICD-10-PCS; 2022-11-25)
PROC: 3E0G76Z Introduction of Nutritional Substance into Upper GI, Via Natural or Artificial Opening (ICD-10-PCS; 2022-11-25)
PROC: 3E0F8GC Introduction of Other Therapeutic Substance into Respiratory Tract, Via Natural or Artificial Opening Endoscopic (ICD-10-PCS; 2022-12-02)
DX: C34.12 Malignant neoplasm of upper lobe, left bronchus or lung (principal); D62 Acute posthemorrhagic anemia; I69.351 Hemiplegia and hemiparesis following cerebral infarction affecting right dominant side; J95.812 Postprocedural air leak; J95.811 Postprocedural pneumothorax; J98.2 Interstitial emphysema; R09.02 Hypoxemia; J38.01 Paralysis of vocal cords and larynx, unilateral; E87.6 Hypokalemia; E83.51 Hypocalcemia; Y83.8 Other surgical procedures as the cause of abnormal reaction of the patient, or of later complication, without mention of misadventure at the time of the procedure; R91.1 Solitary pulmonary nodule; G40.909 Epilepsy, unspecified, not intractable, without status epilepticus; Z80.1 Family history of malignant neoplasm of trachea, bronchus and lung; I69.320 Aphasia following cerebral infarction; I69.398 Other sequelae of cerebral infarction; Z87.891 Personal history of nicotine dependence
CPT/HCPCS: 36415; 71045; 74018; 80048; 82040; 82310; 83735; 84100; 85025; 85027; 86850; 86900; 86901; 87040; 88305; 88307; 88309; 88313; 88341; 88342; 93970; 94002; 94640; A4649; C1729; C1776; J0696; J1100; J1170; J1200; J1642; J1644; J1885; J1940; J1953; J2001; J2185; J2250; J2370; J2405; J2704; J3010; J3230; J3475; J3480; J3490; J7120; J7620; P9045; S0028